=== PATIENT | female | born 1990 | race Caucasian/White ===

== ENCOUNTER 2017-04-28 12:34 | Emergency (ER) | payer BC, OTHER ==
[~2017-04-28] VITALS: Ht 175.3 cm; Wt 63.9 kg
[~2017-04-28 12:34] MED LIST: BCPILLS PO
[2017-04-28 12:57] VITALS: TEMP 36.8; Ht 175.3 cm; Wt 63.9 kg
[2017-04-28 13:57] LABS: BASO % 0.6 %; BASO ABS # 0.03 K/uL (0-0.2); COMPLETE YES; EOS % 1.5 %; HEMATOCRIT 42.7 % (37-47); IG% 0.2 %; LYMPH % 37.8 %; LYMPH ABS # 2.05 K/uL (1.2-3.4); MEAN CELL VOLUME 89.1 fL (80-100); MEAN CORPUSCULAR HEMOGLOBIN 29.6 pg (25-34); MEAN CORPUSCULAR HGB CONC 33.3 g/dl (32-36); MEAN PLATELET VOLUME 10.3 fL (7.4-10.4); MONO % 12.2 %; NEUT % 47.7 %; PLATELET COUNT 250 K/uL (130-400); RED BLOOD COUNT 4.79 M/uL (4.2-5.4); WHITE BLOOD COUNT 5.42 K/uL (4.8-10.8)
--- NOTE | 2017-04-28 14:00 | EMERGENCY ROOM VISIT NOTE ---
History First contact with patient: 13:04 Chief Complaint: CONSTIPATION Stated Complaint: CONSTIPATION/BLOATING AND GAS PAIN X 2 WKS Nursing Triage Summary: triage ntoe: pt reports generalized abd pain, nausea, bloating. pt reports in the past two weeks she has only had one bm that was very small two days ago. History of Present Illness The patient is a 26 year old female who presents to the Emergency Room with complaints of generalized abdominal discomfort, bloating and constipation. The patient states that over the past 2 weeks, she has had a decreased amount of bowel movements. She has had "gas pains" which are daily. She states the pain is mild and rates the discomfort a 4/10. The patient has been constipated and has only had 1 very small bowel movement in the past 2 weeks. She denies any previous issues with abdominal pain or previous abdominal surgeries. She denies any recent changes in her diet. She denies urinary symptoms or fevers/ chills. She is slightly nauseous today, but denies vomiting. She tried magnesium citrate without relief 5 days ago. She reports her mother has a history of ulcerative colitis. Review of Systems A complete 10 point review of systems was reviewed with the patient with pertinent positives and negatives as per history of present illness. All else were negative. Past Medical/Surgical History Medical Problems: (1) No significant past medical history Surgical Problems: (1) No significant past surgical history Family History Ulcerative colitis Social History Smoking Status: Never Smoker Alcohol Use: occasionally Drug Use: none Marital Status: Housing Status: lives with family Occupation Status: employed Current/Historical Medications No Active Prescriptions or Reported Meds Physical Exam Vital Signs Date Time Temp Pulse Resp B/P (MAP) Pulse Ox O2 Delivery O2 Flow Rate FiO2 04/28/17 15:57 69 17 111/60 99 04/28/17 13:50 65 15 100/75 99 Room Air 04/28/17 12:57 36.8 67 18 132/80 99 Room Air Physical Exam VITALS: Vitals are noted on the nurse's note and reviewed by myself. Vital signs stable. GENERAL: This is a 26-year-old female, in no acute distress, nondiaphoretic, well-developed well-nourished. HEENT: Normocephalic. PERRLA. Mucous membranes moist. HEART: Regular rate and rhythm without murmurs gallops or rubs. LUNGS: Clear to auscultation bilaterally without wheezes, rales or rhonchi. ABDOMEN: Positive bowel sounds x 4. Soft, nontender to palpation. NEURO: Patient was alert and oriented to person place and time. Medical Decision & Procedures ER Provider Diagnostic Interpretation: PA CHEST RADIOGRAPH AND UPRIGHT AND SUPINE AP RADIOGRAPHS OF THE ABDOMEN FINDINGS: Lung volumes are normal. No pneumothorax or pleural effusion is present. Cardiac size is normal. Mediastinal contours are normal. There is no evidence of pulmonary edema. There is no free air. The bowel gas pattern is normal. There is a moderate amount of stool within the colon and rectum. IMPRESSION: 1. No free air or evidence of bowel obstruction. 2. Moderate amount of stool within the colon and rectum. 3. No acute cardiopulmonary findings. Laboratory Results 04/28/17 13:20 Red Blood Count 4.79, Mean Corpuscular Volume 89.1, Mean Corpuscular Hemoglobin 29.6, Mean Corpuscular Hemoglobin Concent 33.3, Mean Platelet Volume 10.3, Neutrophils (%) (Auto) 47.7, Lymphocytes (%) (Auto) 37.8, Monocytes (%) (Auto) 12.2, Eosinophils (%) (Auto) 1.5, Basophils (%) (Auto) 0.6, Neutrophils # (Auto ) 2.59, Lymphocytes # (Auto) 2.05, Monocytes # (Auto) 0.66, Eosinophils # (Auto ) 0.08, Basophils # (Auto) 0.03 04/28/17 13:20 Test 04/28/17 13:20 White Blood Count 5.42 K/uL (4.8-10.8) Red Blood Count 4.79 M/uL (4.2-5.4) Hemoglobin 14.2 g/dL (12.0-16.0) Hematocrit 42.7 % (37-47) Mean Corpuscular Volume 89.1 fL (80-100) Mean Corpuscular Hemoglobin 29.6 pg (25-34) Mean Corpuscular Hemoglobin Concent 33.3 g/dl (32-36) Platelet Count 250 K/uL (130-400) Mean Platelet Volume 10.3 fL (7.4-10.4) Neutrophils (%) (Auto) 47.7 % Lymphocytes (%) (Auto) 37.8 % Monocytes (%) (Auto) 12.2 % Eosinophils (%) (Auto) 1.5 % Basophils (%) (Auto) 0.6 % Neutrophils # (Auto) 2.59 K/uL (1.4-6.5) Lymphocytes # (Auto) 2.05 K/uL (1.2-3.4) Monocytes # (Auto) 0.66 K/uL (0.11-0.59) Eosinophils # (Auto) 0.08 K/uL (0-0.5) Basophils # (Auto) 0.03 K/uL (0-0.2) RDW Standard Deviation 40.6 fL (36.4-46.3) RDW Coefficient of Variation 12.5 % (11.5-14.5) Immature Granulocyte % (Auto) 0.2 % Immature Granulocyte # (Auto) 0.01 K/uL (0.00-0.02) Anion Gap 6.0 mmol/L (3-11) Est Creatinine Clear Calc Drug Dose 117.3 ml/min Estimated GFR () 132.1 Estimated GFR (Non- 114.0 BUN/Creatinine Ratio 13.2 (10-20) Calcium Level 9.1 mg/dl (8.5-10.1) Total Bilirubin 0.5 mg/dl (0.2-1) Aspartate Amino Transf (AST/SGOT) 17 U/L (15-37) Alanine Aminotransferase (ALT/SGPT) 21 U/L (12-78) Alkaline Phosphatase 47 U/L (45-117) Total Protein 7.8 gm/dl (6.4-8.2) Albumin 3.9 gm/dl (3.4-5.0) Globulin 3.9 gm/dl (2.5-4.0) Albumin/Globulin Ratio 1.0 (0.9-2) Lipase 116 U/L (73-393) ED Course The patient was evaluated as above. Labs were drawn and IV access was obtained. Abdominal series was performed and read by radiology as above. Patient was reevaluated and findings were discussed. She is ready for discharge. Discharge instructions were reviewed with the patient. The patient verbalized understanding of my assessment and treatment plan and was discharged home in good condition. Medical Decision Differential diagnosis includes constipation, bowel obstruction, IBS, IBD, pelvic etiology, urinary tract infection, appendicitis, cholecystitis, pancreatitis, gastroenteritis, among others. The patient is a 26-year-old female who presents today complaining of abdominal discomfort and constipation. Labs revealed no leukocytosis or anemia. There were no concerning electrolyte abnormalities. Abdominal series was performed and showed moderate constipation with no evidence of obstruction. I do not feel CT is necessary, as the patient is afebrile and has no tenderness on exam. I feel her discomfort is likely secondary to constipation. She was counseled on [id number] treatments that she may attempt to use at home and was instructed to follow-up with her primary care provider for further evaluation. She will return here for worsening or new/concerning symptoms. Based on the patient's presentation and work up, I feel the patient is stable for outpatient treatment. The patient was educated to return to the emergency department for any worsening of their current condition or new/concerning symptoms. She will follow up with her PCP. Medication Reconcilliation Current Medication List: was personally reviewed by me Blood Pressure Screening Patient's blood pressure: Normal blood pressure Impression Primary Impression: Constipation Departure Information Dispostion Home / Self-Care Condition GOOD Prescriptions No Active Prescriptions or Reported Meds Referrals Faith Roht M.D. (PCP) Patient Instructions ED Constipation, [facility] Additional Instructions You have been treated in the Emergency Department today for Constipation. Laboratory results and imaging studies do not indicate any emergent issues warranting surgery or admission. You should drink plenty of fluids and stay well hydrated as this can help soften your stool. Increasing your fiber intake can help with frequency and consistency of your stools. Fruits, vegetables, and whole grains are all good sources of dietary fibers. In addition, you might consider adding supplemental fiber to your diet as well (i.e. Benefiber, Fiber Choice, Metamucil). You should schedule an appointment with your Primary Care Provider for follow up of today's visit. You may begin taking Colace which is a stool softener. You should take this medication daily until your bowel movements have normalized. You may try [id number] medications for constipation including MiraLAX, Dulcolax and milk of magnesia. Take these as directed on the packaging. Return to the Emergency Department if your current symptoms worsen despite treatment course outlined above, or if you develop any of the following symptoms : worsening abdominal pain, large amount of blood in the stool, black or tarry stools, fevers, chills, or uncontrollable vomiting.
[2017-04-28 14:15] LABS: BUN/CREATININE RATIO 13.2 (10-20); CALCIUM 9.1 mg/dl (8.5-10.1); CREATININE 0.72 mg/dl (0.60-1.20); POTASSIUM 3.9 mmol/L (3.5-5.1)
--- NOTE | 2017-04-28 15:06 | DIAGNOSTIC IMAGING REPORT ---
PA CHEST RADIOGRAPH AND UPRIGHT AND SUPINE AP RADIOGRAPHS OF THE ABDOMEN CLINICAL HISTORY: Abdominal pain, bloating and constipation. COMPARISON STUDY: No previous studies for comparison. FINDINGS: Lung volumes are normal. No pneumothorax or pleural effusion is present. Cardiac size is normal. Mediastinal contours are normal. There is no evidence of pulmonary edema. There is no free air. The bowel gas pattern is normal. There is a moderate amount of stool within the colon and rectum. IMPRESSION: 1. No free air or evidence of bowel obstruction. 2. Moderate amount of stool within the colon and rectum. 3. No acute cardiopulmonary findings. Electronically signed by: Shahid Montiel M.D. 04/28/2017 3:04 PM Dictated Date/Time: 04/28/2017 3:03 PM
[2017-04-28 15:57] VITALS: BP 111/60; PULSE 69; O2SAT 99
== END 2017-04-28 15:55 | disposition home or self-care (01) ==
LOC: C.EDB 12:35
DX: K59.00 Constipation, unspecified (principal); Z83.79 Family history of other diseases of the digestive system

== ENCOUNTER → 2017-05-07 | Outpatient (CLI) | payer OTHER ==
[2017-05-07 14:05] LABS: CHOLESTEROL/HDL RATIO 3.2; THYROID STIMULATING HORMONE 2.84 uIu/ml (0.300-4.500)
== END | disposition home or self-care (01) ==
LOC: C.LAB 12:00
PROVIDERS: ATTEND Family Medicine
DX: R53.83 Other fatigue (principal); Z13.1 Encounter for screening for diabetes mellitus; Z13.220 Encounter for screening for lipoid disorders

== ENCOUNTER → 2017-10-05 | Outpatient (CLI) | payer OTHER | END | disposition home or self-care (01) | LOC: C.LABSPEC 12:16 | PROVIDERS: ATTEND Obstetrics & Gynecology | DX: O99.281 Endocrine, nutritional and metabolic diseases complicating pregnancy, first trimester (principal); E03.9 Hypothyroidism, unspecified; Z3A.00 Weeks of gestation of pregnancy not specified ==

== ENCOUNTER → 2017-10-10 | Outpatient (CLI) | payer OTHER | END | disposition home or self-care (01) | LOC: C.PAPS 11:49 | PROVIDERS: ATTEND Obstetrics & Gynecology | DX: Z12.4 Encounter for screening for malignant neoplasm of cervix (principal) ==

== ENCOUNTER → 2017-10-10 | Outpatient (CLI) | payer OTHER ==
[2017-10-10 10:16] LABS: BASO % 0.2 %; BASO ABS # 0.02 K/uL (0-0.2); EOS % 0.8 %; EOS ABS # 0.07 K/uL (0-0.5); HEMATOCRIT 39.9 % (37-47); IG# 0.02 K/uL (0.00-0.02); LYMPH % 20.6 %; LYMPH ABS # 1.88 K/uL (1.2-3.4); MEAN CELL VOLUME 88.5 fL (80-100); MEAN CORPUSCULAR HGB CONC 35.1 g/dl (32-36); MEAN PLATELET VOLUME 10.5 fL (7.4-10.4); MONO ABS # 0.82 K/uL (0.11-0.59); NEUT % 69.2 %; NEUT ABS # 6.31 K/uL (1.4-6.5); PLATELET COUNT 233 K/uL (130-400); RED CELL DISTRIBUTION WIDTH CV 12.5 % (11.5-14.5); RED CELL DISTRIBUTION WIDTH SD 40.1 fL (36.4-46.3); WHITE BLOOD COUNT 9.12 K/uL (4.8-10.8)
== END | disposition home or self-care (01) ==
LOC: C.LAB1850 09:04
PROVIDERS: ATTEND Obstetrics & Gynecology
DX: O99.281 Endocrine, nutritional and metabolic diseases complicating pregnancy, first trimester (principal); E03.9 Hypothyroidism, unspecified; Z3A.00 Weeks of gestation of pregnancy not specified

== ENCOUNTER → 2017-12-10 | Outpatient (CLI) | payer OTHER | END | disposition home or self-care (01) | LOC: C.LAB1850 09:33 | PROVIDERS: ATTEND Obstetrics & Gynecology | DX: Z34.81 Encounter for supervision of other normal pregnancy, first trimester (principal) ==

== ENCOUNTER 2018-05-06 19:22 | Outpatient (CLI) | payer OTHER | END 2018-05-06 20:00 | disposition home or self-care (01) | LOC: C.OPB 19:22 → C.LD 19:22 → C.OPB 20:00 | PROVIDERS: ATTEND Obstetrics & Gynecology | DX: O36.8130 Decreased fetal movements, third trimester, not applicable or unspecified (principal); O99.820 Streptococcus B carrier state complicating pregnancy; Z3A.37 37 weeks gestation of pregnancy ==